=== PATIENT | female | born 1965 | race Two or more races ===

== ENCOUNTER 2017-09-09 23:45 | Inpatient (IN) | payer MEDICAID ==
[~2017-09-09] VITALS: Ht 160 cm; Wt 90.7 kg
[2017-09-09] MEDS ORDERED: Oxymetazoline 0.05% Na Spray 30ml NASAL ONE (23:50)
[2017-09-10] VITALS (7 sets, daily range): BP systolic 121–158; BP diastolic 75–105
[2017-09-10] MEDS ORDERED: Sodium Chloride 500ML 500 ML IV ONE
[2017-09-10] MEDS ORDERED: Oxymetazoline 0.05% Na Spray 30ml NASAL ONE
--- NOTE | 2017-09-10 00:02 | Emergency Room Report ---
History of Present Illness General Chief Complaint: Nosebleed Source: Patient Present Illness HPI Patient is a 52-year-old female brought in by EMS for nosebleed. Patient acute onset of profuse bleeding from both nares. The patient denied prior episodes of bleeding. She reportedly takes aspirin for cardiac disease. Patient additionally takes medications for blood pressure. The patient denied recent trauma. Allergies: Coded Allergies: No Known Allergies (Unverified , 09/09/17) Patient History Past Medical History: see triage record Reviewed Nursing Documentation: PMH: Agreed; PSxH: Agreed Nursing Documentation-PMH Hx Hypertension: Yes Review of Systems All Other Systems: negative except mentioned in HPI Physical Exam Vital Signs Date Time Temp Pulse Resp B/P (MAP) Pulse Ox O2 Delivery O2 Flow Rate FiO2 09/09/17 23:41 133 18 169/104 98 Room Air Sp02 EP Interpretation: reviewed, normal General Appearance: normal inspection, well appearing, no apparent distress, alert, GCS 15 Head: atraumatic ENT: hearing grossly normal, normal voice, other - bleeding from bilateral nares, right greater than left Neck: normal inspection, full range of motion, supple, no bony tend Respiratory: normal inspection, lungs clear, normal breath sounds, no respiratory distress, no retraction, no wheezing Cardiovascular #1: regular rate, rhythm, no edema Gastrointestinal: normal inspection, normal bowel sounds, non tender, soft, no guarding, no hernia Genitourinary: no CVA tenderness Musculoskeletal: normal inspection, back normal, normal range of motion Neurologic: normal inspection, alert, responsive, speech normal Psychiatric: normal inspection, judgement/insight normal, mood/affect normal Skin: normal inspection, normal color, no rash Procedures Critical Care Time Critical Care Time Patient had a critical medical condition which untreated could potentially result in life or limb threatening injury. Total critical care time excluding procedures approximately 45 minutes. Medical Decision Making Diagnostic Impression: Primary Impression: Severe epistaxis ER Course Patient presented for nosebleed. The differential diagnoses included but is not limited to coagulopathy, posterior epistaxis, anterior epistaxis, history of venous malformation, anemia among others.Because of complexity of patient's case laboratory testing and imaging studies were ordered. The patient was noted to have severe bleeding which appear to be primarily from the right Nares. The patient was given Afrin nasal spray to the right nare the patient was initially packed with anterior Rhino Rocket with continued bleeding posteriorly. The patient was subsequently packed with a posterior and anterior Rhino Rocket with some improvement however continued to bleed and the left naris was packed as well. The patient was subsequently given gauze soaked tranexemic acid with some improvement in bleeding. The patient was given morphine for pain for posterior pack. The patient subsequently had the posterior pack removed an anterior pack was placed. The patient had near syncope The during initial posterior pack. The patient's initial hemoglobin was noted to be adequate. Patient started on IV fluids. Dr. Gomes was contacted for inpatient management for Dr. Lubin. Labs Test 09/10/17 00:17 White Blood Count 9.1 K/UL (4.8-10.8) Red Blood Count 4.74 M/UL (4.20-5.40) Hemoglobin 13.9 G/DL (12.0-16.0) Hematocrit 40.1 % (37.0-47.0) Mean Corpuscular Volume 85 FL (80-99) Mean Corpuscular Hemoglobin 29.3 PG (27.0-31.0) Mean Corpuscular Hemoglobin Concent 34.7 G/DL (32.0-36.0) Red Cell Distribution Width 11.3 % (11.6-14.8) Platelet Count 243 K/UL (150-450) Mean Platelet Volume 8.3 FL (6.5-10.1) Neutrophils (%) (Auto) 66.3 % (45.0-75.0) Lymphocytes (%) (Auto) 19.7 % (20.0-45.0) Monocytes (%) (Auto) 7.0 % (1.0-10.0) Eosinophils (%) (Auto) 6.2 % (0.0-3.0) Basophils (%) (Auto) 0.8 % (0.0-2.0) Prothrombin Time 11.0 SEC (9.30-11.50) Prothromb Time International Ratio 1.1 (0.9-1.1) Activated Partial Thromboplast Time 27 SEC (23-33) Sodium Level 138 MMOL/L (136-145) Potassium Level 3.4 MMOL/L (3.5-5.1) Chloride Level 101 MMOL/L (98-107) Carbon Dioxide Level 27 MMOL/L (21-32) Anion Gap 10 mmol/L (5-15) Blood Urea Nitrogen 26 mg/dL (7-18) Creatinine 0.9 MG/DL (0.55-1.30) Estimat Glomerular Filtration Rate > 60 mL/min (>60) Glucose Level 152 MG/DL (74-106) Calcium Level 9.5 MG/DL (8.5-10.1) Total Bilirubin 1.2 MG/DL (0.2-1.0) Direct Bilirubin 0.2 MG/DL (0.0-0.3) Aspartate Amino Transf (AST/SGOT) 28 U/L (15-37) Alanine Aminotransferase (ALT/SGPT) 45 U/L (12-78) Alkaline Phosphatase 74 U/L (46-116) Total Protein 8.7 G/DL (6.4-8.2) Albumin 4.6 G/DL (3.4-5.0) Globulin 4.1 g/dL Albumin/Globulin Ratio 1.1 (1.0-2.7) EKG Diagnostic Results Rate: normal Rhythm: NSR ST Segments: no acute changes Last Vital Signs Date Time Temp Pulse Resp B/P (MAP) Pulse Ox O2 Delivery O2 Flow Rate FiO2 09/09/17 23:41 133 18 169/104 98 Room Air Status: improved Disposition: ADMITTED INPATIENT Condition: Fahad Lloyd MD September 10, 2017 00:02
[2017-09-10 00:38] LABS: BASOPHILS % (AUTO) 0.8 % (0.0-2.0); EOSINOPHILS % (AUTO) 6.2 % (0.0-3.0); HEMATOCRIT 40.1 % (37.0-47.0); HEMOGLOBIN 13.9 G/DL (12.0-16.0); LYMPHOCYTES % (AUTO) 19.7 % (20.0-45.0); MEAN CORPUSCULAR VOLUME 85 FL (80-99); NEUTROPHILS % (AUTO) 66.3 % (45.0-75.0); PLATELET COUNT 243 K/UL (150-450); RED BLOOD COUNT 4.74 M/UL (4.20-5.40); RED CELL DISTRIBUTION WIDTH 11.3 % (11.6-14.8); WHITE BLOOD COUNT 9.1 K/UL (4.8-10.8)
[2017-09-10] MEDS ORDERED: TRANEXAMIC ACID 1000 MG TOPIC ONE (00:45)
[2017-09-10 00:47] LABS: INR 1.1 (0.9-1.1)
[2017-09-10 00:53] LABS: ANION GAP 10 mmol/L (5-15); BLOOD UREA NITROGEN 26 mg/dL (7-18); CALCIUM 9.5 MG/DL (8.5-10.1); CARBON DIOXIDE 27 MMOL/L (21-32); CHLORIDE 101 MMOL/L (98-107); CREATININE 0.9 MG/DL (0.55-1.30); POTASSIUM 3.4 MMOL/L (3.5-5.1); SODIUM 138 MMOL/L (136-145)
[2017-09-10] MEDS ORDERED: Morphine Sulfate 4mg/ml Inj IVP ONE (01:00)
[2017-09-10 01:01] LABS: ALANINE AMINOTRANSFERASE 45 U/L (12-78); ALBUMIN 4.6 G/DL (3.4-5.0); ALBUMIN/GLOBULIN RATIO 1.1 (1.0-2.7); ALKALINE PHOSPHATASE 74 U/L (46-116); ASPARTATE AMINO TRANSFERASE 28 U/L (15-37); BILIRUBIN,TOTAL 1.2 MG/DL (0.2-1.0)
[2017-09-10 01:12] LABS: BILIRUBIN,DIRECT 0.2 MG/DL (0.0-0.3)
[2017-09-10] MEDS ORDERED: Atropine Inj 1mg/10ml Syr ONE (01:17)
[2017-09-10] MEDS ORDERED: Acetaminophen 500mg (ES) tab ORAL ONE (04:45)
[2017-09-10] MEDS ORDERED: LOSARTAN POTAS100 MG ORAL (05:06)
[2017-09-10] MEDS ORDERED: HYDROCHLOROTHIA25 MG ORAL (05:06)
[2017-09-10] MEDS ORDERED: ATORVASTATIN CA20 MG ORAL (05:06)
[2017-09-10] MEDS ORDERED: ASPIRIN EC81 MG ORAL (05:06)
[2017-09-10] MEDS ORDERED: Losartan 50mg tab ORAL SCH (11:00)
[2017-09-10 11:52] LABS: BASOPHILS % (AUTO) 0.7 % (0.0-2.0); EOSINOPHILS % (AUTO) 1.8 % (0.0-3.0); HEMATOCRIT 35.8 % (37.0-47.0); HEMOGLOBIN 12.1 G/DL (12.0-16.0); LYMPHOCYTES % (AUTO) 19.4 % (20.0-45.0); MEAN CORPUSCULAR VOLUME 85 FL (80-99); MONOCYTES % (AUTO) 6.1 % (1.0-10.0); PLATELET COUNT 230 K/UL (150-450); RED BLOOD COUNT 4.19 M/UL (4.20-5.40); RED CELL DISTRIBUTION WIDTH 11.5 % (11.6-14.8); WHITE BLOOD COUNT 7.6 K/UL (4.8-10.8)
--- NOTE | 2017-09-10 15:00 | History and Physical Report ---
DATE OF ADMISSION: 09/10/2017 REASON FOR ADMISSION: Severe epistaxis. HISTORY OF PRESENT ILLNESS: The patient is a 52-year-old female with known hypertension and hyperlipidemia. She has been taking aspirin on a daily basis. She presented to the emergency room for further evaluation and care of a nosebleed spontaneous with no recent trauma. The patient was feeling a little weak and tired. Her right naris was packed in the emergency room and she was admitted for evaluation of underlying etiology. She denies any current chest pain or shortness of breath. She states that her bleeding has got to the point where she started having nausea and throwing up. She is feeling better. PAST MEDICAL HISTORY: 1. Hyperlipidemia. 3. Hypertension. ALLERGIES: No known drug allergies. SOCIAL HISTORY: No current tobacco, alcohol, or illicit drug use. PAST SURGICAL HISTORY: Noncontributory. REVIEW OF SYSTEMS: NEUROLOGIC: The patient denies headache, change in vision, syncope, or presyncopal episodes. CARDIOVASCULAR: No current chest pain, palpitations, or angina. PULMONARY: No difficulty breathing, productive cough, or sputum. GASTROINTESTINAL/GENITOURINARY: No changes in urinary or bowel habits. She was having episodes of emesis. ENDOCRINOLOGY: No night sweats, fevers, or chills. MUSCULOSKELETAL: No limiting range of motion. No muscle aches or pains. LABORATORY DATA: Laboratories dated September 10, 2017, potassium 3.4, sodium 138, BUN 26, and creatinine 0.9. AST 28 and ALT 45. Calcium 9.5. Albumin 4.6. Hemoglobin 13.9, white cell count 9.1, and platelet count 243. PHYSICAL EXAMINATION: VITAL SIGNS: Blood pressure 147/99, respiratory rate 15, 98% oxygen saturation on room air, and pulse 88. GENERAL: The patient is awake, alert, not in any distress. HEENT: Extraocular muscles intact. Right naris packed. CARDIOVASCULAR: S1 and S2. No rubs or gallops. Regular rate. PULMONARY: Clear to auscultation bilaterally. No rales, rhonchi, or wheezes. ABDOMEN: Nondistended and nontender. EXTREMITIES: No edema. ASSESSMENT AND PLAN: 1. Severe epistaxis, right naris. The patient has been given Afrin nasal spray to the right naris and packed with anterior Rhino Rocket. At this time, ENT will be consulted for further evaluation and management. Depending on ENT recommendations, we will proceed from there. 2. Hypertension. Continue home medications of hydrochlorothiazide and losartan. 3. Hyperlipidemia. Continue statin therapy. 4. DVT prophylaxis with SCDs. Ted Gomes MD DR: PRESTON JOB#: [id number] CC: JENNIFER
[2017-09-10] MEDS ORDERED: oxyCODONE HCL/Acetaminophen 5/325mg ORAL PRN (17:15)
--- NOTE | 2017-09-10 19:15 | Discharge Instructions ---
Discharge Instructions Discharge Instructions Diet: 2 GM sodium (low sodium) Resume Normal Activity?: Yes Activity: resume normal activities Pneumonia Vaccine: vaccine not indicated Influenza Vaccine (Jan to Jun): vaccine not indicated Follow Up Orders Return to [facility] or [facility] if nose bleed returns For Surgical Patients May shower: Yes Contact your physician for: bleeding For Congestive Heart Failure Reminder Report to your physician any weight gain of 5 pounds or more in one week. Ted Gomes M.D. September 10, 2017 19:15
--- NOTE | 2017-09-10 19:27 | Consultation ---
History of Present Illness General Date patient seen: September 10, 2017 Chief Complaint: Nosebleed Present Illness HPI 52F presented with epistasis. controlled in ED and admitted for monitoring. had right nasal packing placed for hemostasis. since well. no history of such events. states was home and noted nose bleed that would not stop. no n/v/f/c. no history. On ASA 81mg qday by her pcp. HTN uncontrolled currently. surgery called to evaluate since no ENT service could be obtained currently at this hospital. Allergies: Coded Allergies: No Known Allergies (Unverified , 09/09/17) Medication History Scheduled Aspirin Ec* (Aspirin Ec*), 81 MG ORAL DAILY, (Reported) Atorvastatin Calcium* (Atorvastatin Calcium*), 20 MG ORAL BEDTIME, (Reported) Hydrochlorothiazide* (Hydrochlorothiazide*), 25 MG ORAL DAILY, (Reported) Losartan Potassium (Losartan Potassium), 100 MG ORAL DAILY, (Reported) Patient History History Provided By: Patient, Family Member, Significant Other, Medical Record , PMD Healthcare decision maker [phone] Resuscitation status Full Code Advanced Directive on File Past Medical/Surgical History Past Medical/Surgical History: (1) Posterior epistaxis (2) Severe epistaxis Review of Systems All Other Systems: negative except mentioned in HPI Physical Exam General Appearance: no apparent distress, alert Lines, tubes and drains: peripheral HEENT: normocephalic, mucous membranes moist, other - right nasal packing Neck: non-tender, normal alignment Respiratory/Chest: lungs clear, normal breath sounds Cardiovascular/Chest: normal peripheral pulses, normal rate, regular rhythm, regularly irregular Abdomen: normal bowel sounds, non tender, soft, no organomegaly, no mass Extremities: normal range of motion, non-tender, normal inspection Skin Exam: normal pigmentation Neurologic: alert, oriented x 3 Last 24 Hour Vital Signs Date Time Temp Pulse Resp B/P (MAP) Pulse Ox O2 Delivery O2 Flow Rate FiO2 09/10/17 16:05 98.2 75 20 121/75 99 Room Air 98.2 09/10/17 16:00 72 09/10/17 13:51 97.7 73 20 147/85 95 Room Air 97.7 09/10/17 12:00 97.7 73 20 147/85 95 Room Air 97.7 09/10/17 12:00 81 09/10/17 10:32 158/87 09/10/17 08:00 76 09/10/17 08:00 97.5 73 21 158/87 96 Room Air 97.5 09/10/17 05:27 88 15 147/99 98 Room Air 09/10/17 04:58 88 15 147/99 98 Room Air 09/10/17 02:39 89 15 156/105 98 Room Air 09/10/17 00:32 106 16 147/94 98 Room Air 09/09/17 23:41 133 18 169/104 98 Room Air Intake and Output 09/09/17 09/10/17 19:00 07:00 Output Total 0 ml Balance 0 ml Output Urine Total 0 ml # Voids 1 Laboratory Tests Test 09/10/17 00:17 09/10/17 11:40 White Blood Count 9.1 K/UL (4.8-10.8) 7.6 K/UL (4.8-10.8) Red Blood Count 4.74 M/UL (4.20-5.40) 4.19 M/UL (4.20-5.40) L Hemoglobin 13.9 G/DL (12.0-16.0) 12.1 G/DL (12.0-16.0) Hematocrit 40.1 % (37.0-47.0) 35.8 % (37.0-47.0) L Mean Corpuscular Volume 85 FL (80-99) 85 FL (80-99) Mean Corpuscular Hemoglobin 29.3 PG (27.0-31.0) 28.9 PG (27.0-31.0) Mean Corpuscular Hemoglobin Concent 34.7 G/DL (32.0-36.0) 33.9 G/DL (32.0-36.0) Red Cell Distribution Width 11.3 % (11.6-14.8) L 11.5 % (11.6-14.8) L Platelet Count 243 K/UL (150-450) 230 K/UL (150-450) Mean Platelet Volume 8.3 FL (6.5-10.1) 8.4 FL (6.5-10.1) Neutrophils (%) (Auto) 66.3 % (45.0-75.0) 72.0 % (45.0-75.0) Lymphocytes (%) (Auto) 19.7 % (20.0-45.0) L 19.4 % (20.0-45.0) L Monocytes (%) (Auto) 7.0 % (1.0-10.0) 6.1 % (1.0-10.0) Eosinophils (%) (Auto) 6.2 % (0.0-3.0) H 1.8 % (0.0-3.0) Basophils (%) (Auto) 0.8 % (0.0-2.0) 0.7 % (0.0-2.0) Prothrombin Time 11.0 SEC (9.30-11.50) Prothromb Time International Ratio 1.1 (0.9-1.1) Activated Partial Thromboplast Time 27 SEC (23-33) Sodium Level 138 MMOL/L (136-145) Potassium Level 3.4 MMOL/L (3.5-5.1) L Chloride Level 101 MMOL/L (98-107) Carbon Dioxide Level 27 MMOL/L (21-32) Anion Gap 10 mmol/L (5-15) Blood Urea Nitrogen 26 mg/dL (7-18) H Creatinine 0.9 MG/DL (0.55-1.30) Estimat Glomerular Filtration Rate > 60 mL/min (>60) Glucose Level 152 MG/DL (74-106) H Calcium Level 9.5 MG/DL (8.5-10.1) Total Bilirubin 1.2 MG/DL (0.2-1.0) H Direct Bilirubin 0.2 MG/DL (0.0-0.3) Aspartate Amino Transf (AST/SGOT) 28 U/L (15-37) Alanine Aminotransferase (ALT/SGPT) 45 U/L (12-78) Alkaline Phosphatase 74 U/L (46-116) Total Protein 8.7 G/DL (6.4-8.2) H Albumin 4.6 G/DL (3.4-5.0) Globulin 4.1 g/dL Albumin/Globulin Ratio 1.1 (1.0-2.7) Height (Feet): 5 Height (Inches): 3.00 Weight (Pounds): 200 Medications Current Medications Medications (Trade) Dose Ordered Sig/Clay Route PRN Reason Start Time Stop Time Status Last Admin Dose Admin Dextrose (Dextrose 50%) 25 ml STAT PRN IV Hypoglycemia 09/10/17 07:22 10/10/17 07:21 Dextrose (Dextrose 50%) 50 ml STAT PRN IV Hypoglycemia 09/10/17 07:22 10/10/17 07:21 Hydrochlorothiazide (Hydrodiuril) 25 mg DAILY@1000 ORAL 09/11/17 10:00 10/11/17 09:59 Losartan Potassium (Cozaar) 100 mg DAILY ORAL 09/11/17 09:00 10/11/17 08:59 Oxycodone/ Acetaminophen (Percocet 5-325) 1 tab Q4H PRN ORAL Mild Pain (Pain Scale 1-3) 09/10/17 17:15 09/17/17 17:14 09/10/17 17:34 Sodium Chloride 1,000 ml @ 75 mls/hr [id number] IVLG 09/10/17 08:00 10/10/17 07:59 09/10/17 09:15 Assessment/Plan Problem List: (1) Posterior epistaxis Assessment & Plan: posterior epistaxis. hemostasis with packing in ED. admitted and well since. h/h stable. no current bleeding. unfortunately ENT unavailable to evaluate but I am happy to see patient on ASA and HTN. no trauma but likely bleeding from above. packing removed and no bleeding noted. good hemostasis. -stay off ASA for now. discuss restarting with PCP -needs HTN well controlled -avoid nasal trauma, excessive manipulation of nose -okay to d/c home -if happens again return to ED or call 911 NAVEEN -follow up with PCP for ENT outpatient referral as well. thank you for this consultation ICD Codes: R04.0 - Epistaxis SNOMED: [id number] Status: stable Tanvir Guerrero September 10, 2017 19:27
[2017-09-11] MEDS ORDERED: Losartan 50mg tab ORAL SCH (09:00)
--- NOTE | 2017-09-11 11:07 | Discharge Summary ---
Discharge Summary Discharge Summary _ DATE OF ADMISSION: 09/10/2017 DATE OF DISCHARGE: 09/10/2017 CONSULTANTS: Dr. Tanvir Guerrero BRIEF HOSPITAL COURSE: Patient is a 52-year-old female, with known history of hypertension and hyperlipidemia, has been taking aspirin on a daily basis. She presented to the emergency room for further evaluation and care of a spontaneous nosebleed with no recent trauma. She was feeling weak and tired. On evaluation at ED, she was noted to have severe bleeding from the right naris. She was given Afrin Nasal spray and right naris was packed with anterior Rhino Rocket however continued to have posterior bleeding. Patient was subsequently packed with a posterior and anterior Rhino Rocket with some improvement however continued to bleed, left naris was packed as well. Patient was subsequently given a gauze soaked with tranexamic acid with some improvement in bleeding. Posterior pack was removed and anterior pack was placed. She had a near syncope during initial posterior packing. Blood work showed stable hemoglobin. INR 1.1. She was started on IV fluids and was admitted for severe epistaxis. ENT was unavailable. She was seen Dr. Guerrero. Nasal packing was removed and no bleeding was noted. There was good hemostasis. She was advised to stay off aspirin for now and needs to have high blood pressure well controlled. She was advised to avoid nasal trauma or any manipulation of the nose. She was recommended to follow up with PCP for ENT outpatient referral. She was advised if symptoms require to return to ED or call 911. She was eventually cleared for discharge home. FINAL DIAGNOSES: Severe epistaxis, right naris. Hypertension Hyperlipidemia DISPOSITION: Patient was discharged home. DISCHARGE MEDICATIONS: Refer to Discharge Medication List. DISCHARGE INSTRUCTIONS: Follow up with PCP within a week. Off Aspirin for now until seen by PCP. I have been assigned to dictate discharge summary on this account, and I was not involved in the patient's management. Brooke Varner NP September 11, 2017 11:07
--- NOTE | 2017-09-11 22:44 | Cardiology Report ---
APPROVED REPORT EKG Measurement Heart [id number] Normal sinus rhythm Voltage criteria for left ventricular hypertrophy Nonspecific ST and T wave abnormality Abnormal ECG
== END 2017-09-10 21:05 | disposition home or self-care (01) | DRG 115 ==
LOC: EDBD 23:45 → EMR 23:57 → 2E 09-10 03:55 → EDBEDREQ 09-10 04:33
PROC: 2Y41X5Z Packing of Nasal Region using Packing Material (ICD-10-PCS; principal; 2017-09-10)
DX: R04.0 Epistaxis (principal); R55 Syncope and collapse; E78.5 Hyperlipidemia, unspecified; T39.015A Adverse effect of aspirin, initial encounter; Y92.009 Unspecified place in unspecified non-institutional (private) residence as the place of occurrence of the external cause
CPT/HCPCS: 36415; 80053; 82248; 85025; 85610; 85730; 93005; 99291; J8499